=== PATIENT | female | born 1955 | race Caucasian/White ===

== ENCOUNTER 2019-09-19 11:55 | Inpatient (IN) ==
[2019-09-19] MEDS ORDERED: ALBUTEROL 2.5 MG/3 ML NEB RESP TX ONE (12:11)
[2019-09-19] MEDS ORDERED: methylPREDNISolone SOD SUC 125 MG/2 ML VIAL IV STA (12:14)
[2019-09-19] MEDS ORDERED: FUROSEMIDE 40 MG/4 ML VIAL IV STA (12:37)
[2019-09-19] MEDS ORDERED: cefTRIAXone 1,000 MG in SODIUM CHLORIDE 0.9% 100 ML IV STA (12:37)
[2019-09-19] MEDS ORDERED: LEVOFLOXACIN INJ 500 MG in PREMIX 1 EACH IV STA (12:37)
[2019-09-19 12:53] LABS: Ferritin 5.2 ng/ml (8-252)
[2019-09-19 12:54] LABS: Albumin 3.2 G/DL (3.4-5.0); Bilirubin,Total 0.6 MG/DL (0.2-1.0); Calcium 8.2 MG/DL (8.5-10.1); Osmolality,Calculated 280.5 MOS/KG (273-304); Total Protein 7.3 G/DL (6.4-8.3)
[2019-09-19 12:57] LABS: ABG HCO3 35.5 MMOL/L (20-26); ABG Oxygen Saturation 81.8 % (95-100); ABG PH 7.285 (7.35-7.45); ABG PO2 48.7 MM HG (80-95); ABG TCO2 39.2 MMOL/L (23-27)
[2019-09-19 13:00] LABS: ABG PCO2 86.8 MM HG (35-48)
[2019-09-19 13:04] LABS: Basophils % 0.3 % (0.0-0.8); Hematocrit 30.3 VOL% (35.7-47.0); Hemoglobin 7.5 GM/DL (12.0-16.0); Immature Granulocytes % 1.7 %; Immature Granulocytes Absolute 0.24 #; Lymphocytes # 0.7 10*3/uL (1.4-4.0); Lymphocytes % 5.1 % (21.3-54.2); Mean Corpuscular HGB Conc 24.8 GM/DL (32-36); Mean Corpuscular Volume 89.6 FL (87-102); Monocytes % 6.7 % (1.7-12.7); NRBC # 0.06 10*3/uL; Neutrophils % 86.2 % (38.7-73.9); Platelet Count 302 T/CUMM (130-400); Red Blood Count 3.38 MC/CUMM (3.8-5.5); Red Cell Distribution Width 18.5 % (9.3-17.3)
[2019-09-19 13:19] LABS: Hypochromasia 1+; Platelet Estimate Normal
[2019-09-19] MEDS ORDERED: MIDAZOLAM 10 MG/2 ML VIAL ONE (13:52)
[2019-09-19] MEDS ORDERED: MIDAZOLAM 2 MG/2 ML VIAL IV STA ×2 (13:53→14:10)
[2019-09-19] MEDS ORDERED: DILTIAZEM 50 MG/10 ML VIAL IV STA (14:03)
[2019-09-19] MEDS ORDERED: ONDANSETRON 4 MG/2 ML VIAL IV PRN (14:04)
[2019-09-19] MEDS ORDERED: DILTIAZEM 25 MG/5 ML VIAL IV ONE (14:06)
[2019-09-19] MEDS ORDERED: dilTIAZem Drip 125 MG/125 ML PREMIX IV SCH (14:30)
[2019-09-19 16:24] LABS: ABG Base Excess 12.5 MMOL/L (-2.5-2.5); ABG HCO3 36.3 MMOL/L (20-26); ABG Oxygen Saturation 99.8 % (95-100); ABG PCO2 51.5 MM HG (35-48); ABG PH 7.473 (7.35-7.45); ABG TCO2 35.5 MMOL/L (23-27)
[2019-09-19] MEDS: ASPIRIN EC 81 MG TABLET PO SCH (18:38)
[2019-09-19] MEDS: ENOXAPARIN 40 MG/0.4 ML SYRINGE SUBCUT SCH (20:33)
[2019-09-19] MEDS: methylPREDNISolone SOD SUC 40 MG/1 ML VIAL IV SCH (20:33)
[2019-09-20 03:44] LABS: PT Patient Result 10.3 SECS (9.8-11.9)
[2019-09-20 03:45] LABS: Bilirubin,Total 0.4 MG/DL (0.2-1.0); Calcium 8.2 MG/DL (8.5-10.1); Osmolality,Calculated 280.5 MOS/KG (273-304)
[2019-09-20 03:45] LABS: % Iron Saturation 3.4 % (18-50); Ferritin 6.1 ng/ml (8-252)
[2019-09-20 03:47] LABS: Basophils % 0.1 % (0.0-0.8); Hematocrit 28.2 VOL% (35.7-47.0); Hemoglobin 7.1 GM/DL (12.0-16.0); Immature Granulocytes Absolute 0.07 #; Lymphocytes # 0.6 10*3/uL (1.4-4.0); Lymphocytes % 7.7 % (21.3-54.2); Mean Corpuscular HGB Conc 25.2 GM/DL (32-36); Mean Corpuscular Volume 87.3 FL (87-102); Mean Platelet Volume 10.3 FL (9.6-12.0); Monocytes % 1.4 % (1.7-12.7); NRBC # 0.05 10*3/uL; Neutrophils % 89.8 % (38.7-73.9); Platelet Count 260 T/CUMM (130-400); Red Blood Count 3.23 MC/CUMM (3.8-5.5); Red Cell Distribution Width 18.3 % (9.3-17.3); White Blood Count 7.1 T/CUMM (4-12)
[2019-09-20 04:11] LABS: ABG Base Excess 15.6 MMOL/L (-2.5-2.5); ABG HCO3 43.2 MMOL/L (20-26); ABG PH 7.352 (7.35-7.45); ABG PO2 52.3 MM HG (80-95); ABG TCO2 45.6 MMOL/L (23-27); Allen Test Positive
[2019-09-20 04:13] LABS: ABG PCO2 79.6 MM HG (35-48)
[2019-09-20] MEDS: methylPREDNISolone SOD SUC 40 MG/1 ML VIAL IV SCH ×3 (04:30→21:30)
[2019-09-20 04:36] LABS: Hypochromasia 2+; Microcytosis Slight; Platelet Estimate Adequate
[2019-09-20] MEDS: ALBUTEROL/IPRATROPIUM 3 ML NEB RESP TX PRN ×2 (08:58→15:13)
[2019-09-20] MEDS ORDERED: FUROSEMIDE 40 MG/4 ML VIAL IV ONE (08:59)
[2019-09-20] MEDS: ARIPiprazole 10 MG TABLET PO SCH (09:00)
[2019-09-20] MEDS ORDERED: PANTOPRAZOLE 40 MG TABLET PO SCH (09:00)
[2019-09-20] MEDS ORDERED: DILTIAZEM CD 240 MG CAPSULE PO SCH (09:00)
[2019-09-20] MEDS: ASPIRIN EC 81 MG TABLET PO SCH (09:00)
[2019-09-20] MEDS: SERTRALINE 100 MG TABLET PO SCH (09:01)
[2019-09-20] MEDS: PANTOPRAZOLE 40 MG TABLET PO SCH (09:03)
[2019-09-20] MEDS: LEVOFLOXACIN INJ 750 MG in PREMIX 1 EACH IV SCH (12:27)
[2019-09-20 13:24] LABS: Apearance,Urine CLEAR (Clear); Bacteria,Urine Occasional /HPF (Few); Bilirubin,Urine Negative (Negative); Blood, Urine Small mg/dL (Negative); Glucose,Urine (UA) Negative (Negative); Hyaline Casts,Urine 7 /LPF (0-3); Ketones,Urine Negative (Negative); Mucus,Urine Occasional /LPF (Occasional); Nitrite,Urine Negative (Negative); Protein,Urine Negative; RBC,Urine 30 /HPF (0-4); Squamous Epithelial Cell,Urine Occasional /HPF (0-10); Urine Color Yellow (Yellow); Urine Specific Gravity 1.013 (1.001-1.035); Urine Urobilinogen < 2.0 EU/DL (0.2-1.0); WBC,Urine 3 /HPF (0-6)
[2019-09-20] MEDS ORDERED: DILTIAZEM 60 MG TABLET PO ONE (13:34)
[2019-09-20] MEDS: ENOXAPARIN 40 MG/0.4 ML SYRINGE SUBCUT SCH (21:29)
[2019-09-21] MEDS: methylPREDNISolone SOD SUC 40 MG/1 ML VIAL IV SCH ×2 (04:30→13:55)
[2019-09-21 06:24] LABS: Basophils % 0.2 % (0.0-0.8); Immature Granulocytes Absolute 0.12 #; Lymphocytes # 0.5 10*3/uL (1.4-4.0); Lymphocytes % 4.5 % (21.3-54.2); Mean Corpuscular HGB Conc 24.9 GM/DL (32-36); Mean Corpuscular Volume 88.2 FL (87-102); Mean Platelet Volume 10.8 FL (9.6-12.0); Monocytes % 2.6 % (1.7-12.7); NRBC # 0.08 10*3/uL; Neutrophils % 91.7 % (38.7-73.9); Platelet Count 303 T/CUMM (130-400); Red Blood Count 3.73 MC/CUMM (3.8-5.5); Red Cell Distribution Width 18.4 % (9.3-17.3); White Blood Count 11.5 T/CUMM (4-12)
[2019-09-21 06:35] LABS: Calcium 8.7 MG/DL (8.5-10.1); Osmolality,Calculated 283.5 MOS/KG (273-304)
[2019-09-21 06:52] LABS: Hematocrit 32.3 VOL% (35.7-47.0); Hemoglobin 8.2 GM/DL (12.0-16.0)
[2019-09-21 06:59] LABS: Hypochromasia 2+; Lymphocytes 3 % (20-55); Microcytosis Slight; Nucleated Red Blood Cells 2 (0-5); Platelet Estimate Adequate; Segmented Neutrophils 93 % (50-85); Total Cells Counted 100
[2019-09-21] MEDS ORDERED: DILTIAZEM CD 300 MG CAPSULE PO SCH (09:00)
[2019-09-21] MEDS ORDERED: APIXABAN 5 MG TABLET PO SCH (09:00)
[2019-09-21] MEDS: ARIPiprazole 10 MG TABLET PO SCH (09:06)
[2019-09-21] MEDS: ASPIRIN EC 81 MG TABLET PO SCH (09:06)
[2019-09-21] MEDS: SERTRALINE 100 MG TABLET PO SCH (09:06)
[2019-09-21] MEDS: PANTOPRAZOLE 40 MG TABLET PO SCH (09:07)
[2019-09-21] MEDS ORDERED: ALUMINUM/MAGNES/SIMETH MAX STR 30 ML UDCUP PO PRN (10:57)
[2019-09-21 12:01] VITALS: BP 135/62
[2019-09-21] MEDS: LEVOFLOXACIN INJ 750 MG in PREMIX 1 EACH IV SCH (13:55)
== END 2019-09-21 15:03 | disposition home or self-care (01) | DRG 189 ==
LOC: EDBD → EDUNIT# → N.ED 11:55 → SUATTDRO 14:04 → N.EDINP 14:04 → N.ICU 15:39 → N.TELEN 09-20 16:08
PROVIDERS: ADMIT Family Medicine; ATTEND Internal Medicine

== ENCOUNTER 2020-01-23 17:02 | Observation (INO) ==
[2020-01-23 18:02] LABS: Basophils % 0.1 % (0.0-0.8); Hematocrit 36.4 VOL% (35.7-47.0); Hemoglobin 10.6 GM/DL (12.0-16.0); Immature Granulocytes % 0.6 %; Immature Granulocytes Absolute 0.07 #; Lymphocytes # 0.9 10*3/uL (1.4-4.0); Lymphocytes % 8.2 % (21.3-54.2); Mean Corpuscular HGB Conc 29.1 GM/DL (32-36); Mean Corpuscular Volume 93.3 FL (87-102); Mean Platelet Volume 10.1 FL (9.6-12.0); Monocytes % 5.2 % (1.7-12.7); Neutrophils % 85.9 % (38.7-73.9); Platelet Count 303 T/CUMM (130-400); Red Cell Distribution Width 15.3 % (9.3-17.3); White Blood Count 11.5 T/CUMM (4-12)
[2020-01-23] MEDS ORDERED: methylPREDNISolone SOD SUC 125 MG/2 ML VIAL IV STA (18:43)
[2020-01-23] MEDS ORDERED: FUROSEMIDE 40 MG/4 ML VIAL IV STA (18:43)
[2020-01-23] MEDS ORDERED: ONDANSETRON 4 MG/2 ML VIAL IV STA (18:43)
[2020-01-23] MEDS ORDERED: cefTRIAXone 1,000 MG in SODIUM CHLORIDE 0.9% 100 ML IV STA (18:43)
[2020-01-23] MEDS ORDERED: ALBUTEROL/IPRATROPIUM 3 ML NEB RESP TX STA (18:43)
[2020-01-23] MEDS ORDERED: MORPHINE 4 MG/1 ML VIAL IV STA (18:43)
[2020-01-23 19:08] LABS: Alanine Aminotransferase 24 U/L (13-56); Albumin 3.3 G/DL (3.4-5.0); Alkaline Phosphatase 144 U/L (45-117); Aspartate Amino Transferase 10 U/L (0-37); Bilirubin,Total < 0.39 MG/DL (0.2-1.0); Blood Urea Nitrogen 19 MG/DL (7-18); Calcium 9.2 MG/DL (8.5-10.1); Estimated Glom Filtration Rate 72 ML/MIN; Glucose 156 MG/DL (74-106); Osmolality,Calculated 285.3 MOS/KG (273-304); Total Protein 7.1 G/DL (6.4-8.3)
[2020-01-23] MEDS ORDERED: ONDANSETRON 4 MG/2 ML VIAL IV PRN (19:56)
[2020-01-23] MEDS ORDERED: MAGNESIUM SULF RIDER 4 GM in PREMIX 1 EACH IV PRN (19:56)
[2020-01-23] MEDS ORDERED: DEXTROSE 50% 25 GM/50 ML VIAL IV PRN (19:56)
[2020-01-23] MEDS ORDERED: MAGNESIUM SULF RIDER 2 GM in PREMIX 1 EACH IV PRN (19:56)
[2020-01-23] MEDS ORDERED: GLUCAGON 1 MG VIAL IM PRN (19:56)
[2020-01-23] MEDS ORDERED: MORPHINE 4 MG/1 ML VIAL IV PRN (19:56)
[2020-01-23] MEDS ORDERED: LEVALBUTEROL 1.25 MG/3 ML NEB RESP TX PRN (20:05)
[2020-01-24] MEDS ORDERED: PNEUMOCOCCAL VACCINE (13 VALENT) 0.5 ML SYRINGE IM ONE (00:27)
[2020-01-24] MEDS ORDERED: INFLUENZA VIRUS VACCINE 0.5 ML SYRINGE IM ONE (00:31)
[2020-01-24] MEDS: LEVALBUTEROL 1.25 MG/3 ML NEB RESP TX SCH ×4 (00:31→19:23)
[2020-01-24] MEDS: INSULIN REGULAR 100 UNIT/ML SUBCUT SCH ×5 (01:37→22:00)
[2020-01-24] MEDS: methylPREDNISolone SOD SUC 40 MG/1 ML VIAL IV SCH ×3 (07:14→22:03)
[2020-01-24 07:22] LABS: Alanine Aminotransferase 22 U/L (13-56); Alkaline Phosphatase 130 U/L (45-117); Aspartate Amino Transferase 12 U/L (0-37); Bilirubin,Total < 0.39 MG/DL (0.2-1.0); Blood Urea Nitrogen 23 MG/DL (7-18); Calcium 9.2 MG/DL (8.5-10.1); Estimated Glom Filtration Rate 81 ML/MIN; Glucose 152 MG/DL (74-106); Osmolality,Calculated 289.1 MOS/KG (273-304); Total Protein 7.4 G/DL (6.4-8.3)
[2020-01-24 07:51] LABS: Hematocrit 35.7 VOL% (35.7-47.0); Immature Granulocytes % 0.6 %; Immature Granulocytes Absolute 0.06 #; Lymphocytes # 0.5 10*3/uL (1.4-4.0); Lymphocytes % 5.7 % (21.3-54.2); Mean Corpuscular HGB Conc 29.4 GM/DL (32-36); Mean Corpuscular Volume 93.5 FL (87-102); Mean Platelet Volume 10.2 FL (9.6-12.0); Monocytes % 1.3 % (1.7-12.7); Neutrophils % 92.4 % (38.7-73.9); Platelet Count 298 T/CUMM (130-400); Red Blood Count 3.82 MC/CUMM (3.8-5.5); Red Cell Distribution Width 15.5 % (9.3-17.3); White Blood Count 9.3 T/CUMM (4-12)
[2020-01-24 07:53] LABS: Hemoglobin 10.5 GM/DL (12.0-16.0)
[2020-01-24 07:56] LABS: Hypochromasia 1+; Lymphocytes 8 % (20-55); Microcytosis 1+; Platelet Estimate Adequate; Segmented Neutrophils 90 % (50-85); Total Cells Counted 100
[2020-01-24] MEDS: FUROSEMIDE 40 MG/4 ML VIAL IV SCH (08:25)
[2020-01-24] MEDS: PANTOPRAZOLE 40 MG TABLET PO SCH (08:25)
[2020-01-24] MEDS ORDERED: cefTRIAXone 1,000 MG in SYRINGE 1 EACH IV SCH (18:00)
[2020-01-24] MEDS: SERTRALINE 100 MG TABLET PO SCH (22:02)
[2020-01-24] MEDS: APIXABAN 5 MG TABLET PO SCH (22:02)
[2020-01-25] MEDS: LEVALBUTEROL 1.25 MG/3 ML NEB RESP TX SCH ×3 (01:10→07:04)
[2020-01-25] MEDS ORDERED: DILTIAZEM CD 300 MG CAPSULE PO SCH (09:00)
[2020-01-25] MEDS ORDERED: ARIPiprazole 10 MG TABLET PO SCH (09:00)
[2020-01-25] MEDS ORDERED: MULTIVITAMIN (CENTRUM) TABLET PO SCH (09:00)
[2020-01-25 09:01] LABS: Alanine Aminotransferase 22 U/L (13-56); Albumin 3.2 G/DL (3.4-5.0); Alkaline Phosphatase 125 U/L (45-117); Aspartate Amino Transferase 8 U/L (0-37); Bilirubin,Total < 0.39 MG/DL (0.2-1.0); Blood Urea Nitrogen 20 MG/DL (7-18); Estimated Glom Filtration Rate 94 ML/MIN; Glucose 150 MG/DL (74-106); Osmolality,Calculated 282.5 MOS/KG (273-304); Total Protein 7.8 G/DL (6.4-8.3)
[2020-01-25 09:11] LABS: Basophils % 0.1 % (0.0-0.8); Eosinophils % 0.1 % (0.00-10.9); Immature Granulocytes % 0.7 %; Immature Granulocytes Absolute 0.07 #; Lymphocytes # 0.6 10*3/uL (1.4-4.0); Lymphocytes % 5.7 % (21.3-54.2); Mean Corpuscular HGB Conc 29.2 GM/DL (32-36); Mean Corpuscular Volume 93.8 FL (87-102); Mean Platelet Volume 9.9 FL (9.6-12.0); Monocytes % 5.1 % (1.7-12.7); Neutrophils % 88.3 % (38.7-73.9); Platelet Count 330 T/CUMM (130-400); Red Blood Count 4.05 MC/CUMM (3.8-5.5); Red Cell Distribution Width 15.6 % (9.3-17.3); White Blood Count 10.6 T/CUMM (4-12)
[2020-01-25 09:15] LABS: Hemoglobin 11.1 GM/DL (12.0-16.0)
[2020-01-25] MEDS ORDERED: INFLUENZA VIRUS VACCINE 0.5 ML SYRINGE IM ONE (09:28)
[2020-01-25] MEDS: methylPREDNISolone SOD SUC 40 MG/1 ML VIAL IV SCH (09:43)
[2020-01-25] MEDS: INSULIN REGULAR 100 UNIT/ML SUBCUT SCH ×2 (09:43→12:44)
[2020-01-25] MEDS: FUROSEMIDE 40 MG/4 ML VIAL IV SCH (09:43)
[2020-01-25] MEDS: PANTOPRAZOLE 40 MG TABLET PO SCH (09:43)
[2020-01-25] MEDS: APIXABAN 5 MG TABLET PO SCH (09:44)
[2020-01-25] MEDS: SERTRALINE 100 MG TABLET PO SCH (09:44)
[2020-01-25 12:10] VITALS: BP 141/88
== END 2020-01-25 12:35 | disposition home or self-care (01) ==
LOC: N.ED 17:02 → N.EDINP 17:02 → N.TELEN 20:29
PROVIDERS: ADMIT Family Medicine; ATTEND Family Medicine

== ENCOUNTER 2020-03-26 16:25 | Observation (INO) ==
[2020-03-26 20:32] LABS: Basophils % 0.2 % (0.0-0.8); Eosinophils % 0.8 % (0.00-10.9); Hematocrit 32.5 VOL% (35.7-47.0); Hemoglobin 9.4 GM/DL (12.0-16.0); Immature Granulocytes % 0.3 %; Lymphocytes # 1.8 10*3/uL (1.4-4.0); Lymphocytes % 20.1 % (21.3-54.2); Mean Corpuscular HGB Conc 28.9 GM/DL (32-36); Mean Corpuscular Volume 91.5 FL (87-102); Mean Platelet Volume 9.8 FL (9.6-12.0); Monocytes % 11.2 % (1.7-12.7); Neutrophils % 67.4 % (38.7-73.9); Platelet Count 289 T/CUMM (130-400); Red Blood Count 3.55 MC/CUMM (3.8-5.5); Red Cell Distribution Width 15.5 % (9.3-17.3); White Blood Count 9.1 T/CUMM (4-12)
[2020-03-26 20:33] LABS: Eosinophils # 0.1 10*3/uL (0.0-0.87); Immature Granulocytes Absolute 0.03 #
[2020-03-26 20:42] LABS: PT Patient Result 10.3 SECS (9.8-11.9)
[2020-03-26 20:50] LABS: Anisocytosis 1+; Elliptocytes Few; Hypochromia 1+
[2020-03-26 20:51] LABS: Platelet Estimate Adequate; Polychromasia 1+
[2020-03-26 21:02] LABS: Alanine Aminotransferase 16 U/L (13-56); Albumin 3.2 G/DL (3.4-5.0); Alkaline Phosphatase 107 U/L (45-117); Aspartate Amino Transferase 11 U/L (0-37); Bilirubin,Total < 0.39 MG/DL (0.2-1.0); Blood Urea Nitrogen 16 MG/DL (7-18); Carbon Dioxide 36 MMOL/L (21-32); Chloride 101 MMOL/L (98-107); Estimated Glom Filtration Rate 95 ML/MIN; Ferritin 18.6 ng/ml (8-252); Glucose 115 MG/DL (74-106); Osmolality,Calculated 280.4 MOS/KG (273-304); Potassium 4.1 MMOL/L (3.5-5.1); Sodium 140 MMOL/L (136-145); Total Protein 7.6 G/DL (6.4-8.3)
[2020-03-26] MEDS ORDERED: methylPREDNISolone SOD SUC 125 MG/2 ML VIAL IV STA (21:12)
[2020-03-26 21:48] LABS: Bilirubin,Urine Negative (Negative); Blood, Urine Negative (Negative); Glucose,Urine (UA) Negative (Negative); Ketones,Urine Negative (Negative); Mucus,Urine Occasional /LPF (Occasional); Nitrite,Urine Negative (Negative); Protein,Urine Negative; RBC,Urine 1 /HPF (0-4); Squamous Epithelial Cell,Urine Occasional /HPF (0-10); Urine Appearance CLEAR (Clear); Urine Color Yellow (Yellow); Urine Specific Gravity 1.021 (1.001-1.035); WBC,Urine <1 /HPF (0-6)
[2020-03-26] MEDS ORDERED: ALBUTEROL/IPRATROPIUM 3 ML NEB RESP TX STA (21:53)
[2020-03-26 22:16] LABS: ABG Base Excess 9.8 MMOL/L (-2.5-2.5); ABG HCO3 33.5 MMOL/L (20-26); ABG Oxygen Saturation 94.6 % (95-100); ABG PCO2 68.4 MM HG (35-48); ABG PH 7.349 (7.35-7.45); ABG PO2 77.9 MM HG (80-95); ABG TCO2 34.9 MMOL/L (23-27); Allen Test Positive
[2020-03-26] MEDS ORDERED: NICOTINE 21 MG/24 HR PATCH TRANSDERM PRN (22:23)
[2020-03-26] MEDS ORDERED: diphenhydrAMINE CAP 25 MG CAPSULE PO PRN (22:23)
[2020-03-26] MEDS ORDERED: guaiFENesin/DM ER 600-30 MG TABLET PO PRN (22:23)
[2020-03-26] MEDS ORDERED: ZALEPLON 5 MG CAPSULE PO PRN (22:23)
[2020-03-26] MEDS ORDERED: ONDANSETRON 4 MG/2 ML VIAL IV PRN (22:23)
[2020-03-26] MEDS ORDERED: ALBUTEROL 2.5 MG/3 ML NEB RESP TX PRN (22:23)
[2020-03-26] MEDS ORDERED: GLUCAGON 1 MG VIAL IM PRN (22:23)
[2020-03-26] MEDS ORDERED: BISACODYL 5 MG TABLET PO PRN (22:23)
[2020-03-26] MEDS ORDERED: hydrALAZINE 20 MG/1 ML VIAL IV PRN (22:23)
[2020-03-26] MEDS ORDERED: ALUMINUM/MAGNES/SIMETH MAX STR 30 ML UDCUP PO PRN (22:23)
[2020-03-26] MEDS ORDERED: SIMETHICONE CHEW 125 MG TABLET PO PRN (22:23)
[2020-03-26] MEDS ORDERED: DEXTROSE 50% 25 GM/50 ML VIAL IV PRN (22:23)
[2020-03-26] MEDS ORDERED: AZITHROMYCIN INJ 500 MG in SODIUM CHLORIDE 0.9% 250 ML IV SCH (22:30)
[2020-03-26] MEDS: ALBUTEROL/IPRATROPIUM 3 ML NEB RESP TX SCH (22:55)
[2020-03-27] MEDS: APIXABAN 5 MG TABLET PO SCH ×3 (01:53→20:28)
[2020-03-27] MEDS: ALBUTEROL/IPRATROPIUM 3 ML NEB RESP TX SCH ×6 (03:02→23:17)
[2020-03-27] MEDS: methylPREDNISolone SOD SUC 125 MG/2 ML VIAL IV SCH ×4 (04:44→22:34)
[2020-03-27 05:36] LABS: Basophils % 0.2 % (0.0-0.8); Immature Granulocytes % 0.3 %; Immature Granulocytes Absolute 0.02 #; Lymphocytes # 0.6 10*3/uL (1.4-4.0); Mean Corpuscular Volume 91.4 FL (87-102); Mean Platelet Volume 10.2 FL (9.6-12.0); Monocytes % 0.6 % (1.7-12.7); Neutrophils % 89.9 % (38.7-73.9); Platelet Count 271 T/CUMM (130-400); Red Blood Count 3.39 MC/CUMM (3.8-5.5); Red Cell Distribution Width 15.5 % (9.3-17.3); White Blood Count 6.5 T/CUMM (4-12)
[2020-03-27 06:09] LABS: Calcium 8.8 MG/DL (8.5-10.1); Osmolality,Calculated 283.4 MOS/KG (273-304)
[2020-03-27] MEDS ORDERED: ENOXAPARIN 40 MG/0.4 ML SYRINGE SUBCUT SCH (09:00)
[2020-03-27] MEDS: SERTRALINE 100 MG TABLET PO SCH ×2 (09:11→20:29)
[2020-03-27] MEDS: AZITHROMYCIN 250 MG TABLET PO SCH (09:11)
[2020-03-27] MEDS: SILDENAFIL 20 MG TABLET PO SCH ×3 (09:11→20:29)
[2020-03-27] MEDS: FERROUS SULFATE 325 MG TABLET PO SCH ×2 (09:11→20:29)
[2020-03-27] MEDS: PANTOPRAZOLE 40 MG TABLET PO SCH (09:11)
[2020-03-27] MEDS: Umeclidinium-Vilanterol [Anoro Ellipta] 62.5-25 mcg/actuation Bl INH SCH (09:12)
[2020-03-27] MEDS: ARIPiprazole 10 MG TABLET PO SCH (09:12)
[2020-03-27] MEDS: ACETAMINOPHEN 325 MG TABLET PO PRN ×2 (09:41→16:41)
[2020-03-27] MEDS: DILTIAZEM 90 MG TABLET PO SCH ×2 (12:25→20:28)
[2020-03-27] MEDS ORDERED: DOCUSATE/SENNA 50-8.6 MG TABLET PO SCH (21:00)
[2020-03-28] MEDS: ALBUTEROL/IPRATROPIUM 3 ML NEB RESP TX SCH ×4 (03:30→14:34)
[2020-03-28] MEDS: methylPREDNISolone SOD SUC 125 MG/2 ML VIAL IV SCH ×2 (04:43→12:52)
[2020-03-28 06:31] LABS: Immature Granulocytes % 0.4 %; Immature Granulocytes Absolute 0.03 #; Lymphocytes # 0.5 10*3/uL (1.4-4.0); Lymphocytes % 6.7 % (21.3-54.2); Mean Corpuscular HGB Conc 28.4 GM/DL (32-36); Mean Corpuscular Volume 92.8 FL (87-102); Mean Platelet Volume 10.5 FL (9.6-12.0); Monocytes # 0.2 10*3/uL (0.11-0.8); Neutrophils % 89.9 % (38.7-73.9); Platelet Count 261 T/CUMM (130-400); Red Blood Count 3.34 MC/CUMM (3.8-5.5); Red Cell Distribution Width 15.8 % (9.3-17.3); White Blood Count 6.7 T/CUMM (4-12)
[2020-03-28 06:33] LABS: Hemoglobin 8.8 GM/DL (12.0-16.0)
[2020-03-28 06:45] LABS: Hypochromia 4+; Platelet Estimate Normal; Stomatocytes Few
[2020-03-28 06:50] LABS: Calcium 8.9 MG/DL (8.5-10.1); Osmolality,Calculated 284.3 MOS/KG (273-304); Potassium 3.7 MMOL/L (3.5-5.1)
[2020-03-28] MEDS: FERROUS SULFATE 325 MG TABLET PO SCH (10:06)
[2020-03-28] MEDS: SERTRALINE 100 MG TABLET PO SCH (10:06)
[2020-03-28] MEDS: ARIPiprazole 10 MG TABLET PO SCH (10:06)
[2020-03-28] MEDS: PANTOPRAZOLE 40 MG TABLET PO SCH (10:06)
[2020-03-28] MEDS: AZITHROMYCIN 250 MG TABLET PO SCH (10:06)
[2020-03-28] MEDS: SILDENAFIL 20 MG TABLET PO SCH (10:07)
[2020-03-28] MEDS: DILTIAZEM 90 MG TABLET PO SCH (10:07)
[2020-03-28] MEDS: Umeclidinium-Vilanterol [Anoro Ellipta] 62.5-25 mcg/actuation Bl INH SCH (10:09)
[2020-03-28] MEDS: APIXABAN 5 MG TABLET PO SCH (10:10)
[2020-03-28 12:38] VITALS: BP 139/62
== END 2020-03-28 14:57 | disposition home or self-care (01) ==
LOC: N.EDINP 16:25 → N.ED 16:25 → N.TELES 03-27 00:45
PROVIDERS: ADMIT Internal Medicine; ATTEND Internal Medicine

== ENCOUNTER 2020-07-28 09:39 | Inpatient (IN) ==
[2020-07-28] MEDS ORDERED: ALBUTEROL 2.5 MG/3 ML NEB RESP TX STA (10:07)
[2020-07-28] MEDS ORDERED: MAGNESIUM SULF RIDER 2 GM/50 ML PREMIX IV STA (10:07)
[2020-07-28] MEDS ORDERED: methylPREDNISolone SOD SUC 125 MG/2 ML VIAL IV STA (10:07)
[2020-07-28 10:18] LABS: INR 0.9; PT Patient Result 10.4 SECS (9.8-11.9); Partial Thromboplastin Time 21.1 SECS (23.9-33.8)
[2020-07-28 10:26] LABS: Albumin 3.5 G/DL (3.4-5.0); Bilirubin,Total 0.4 MG/DL (0.2-1.0); Calcium 8.6 MG/DL (8.5-10.1); Osmolality,Calculated 278.5 MOS/KG (273-304); Potassium 4.5 MMOL/L (3.5-5.1); Total Protein 6.8 G/DL (6.4-8.2)
[2020-07-28 10:35] LABS: Basophils % 0.3 % (0.0-0.8); Eosinophils % 0.4 % (0.00-10.9); Immature Granulocytes % 0.6 %; Immature Granulocytes Absolute 0.05 #; Lymphocytes % 12.5 % (21.3-54.2); Mean Corpuscular HGB Conc 26.2 GM/DL (32-36); Mean Corpuscular Volume 91.5 FL (87-102); Mean Platelet Volume 10.6 FL (9.6-12.0); NRBC # 0.03 10*3/uL; Neutrophils % 76.2 % (38.7-73.9); Platelet Count 278 T/CUMM (130-400); Red Blood Count 3.17 MC/CUMM (3.8-5.5); Red Cell Distribution Width 22.2 % (9.3-17.3)
[2020-07-28 10:36] LABS: Hemoglobin 7.6 GM/DL (12.0-16.0)
[2020-07-28 10:52] LABS: Hypochromasia 1+; Microcytosis 1+; Platelet Estimate Adequate
[2020-07-28] MEDS ORDERED: GLUCAGON 1 MG VIAL IM PRN (13:14)
[2020-07-28] MEDS ORDERED: ONDANSETRON 4 MG/2 ML VIAL IV PRN (13:14)
[2020-07-28] MEDS ORDERED: ACETAMINOPHEN 325 MG TABLET PO PRN (13:14)
[2020-07-28] MEDS ORDERED: DEXTROSE 50% 25 GM/50 ML VIAL IV PRN (13:14)
[2020-07-28] MEDS ORDERED: guaiFENesin/DM ER 600-30 MG TABLET PO PRN (13:14)
[2020-07-28] MEDS ORDERED: DOCUSATE SODIUM 100 MG CAPSULE PO PRN (13:14)
[2020-07-28] MEDS ORDERED: FUROSEMIDE 40 MG/4 ML VIAL IV ONE (14:04)
[2020-07-28 14:24] LABS: Folate > 24.00 NG/ML (5.38-24.0); Vitamin B12 517 PG/ML (211-911)
[2020-07-28] MEDS ORDERED: AZITHROMYCIN INJ 500 MG in SODIUM CHLORIDE 0.9% 250 ML IV SCH (15:00)
[2020-07-28] MEDS ORDERED: SODIUM CHLORIDE 0.9% 1,000 ML IV PRN (17:01)
[2020-07-28] MEDS: SILDENAFIL 20 MG TABLET PO SCH ×2 (17:14→21:25)
[2020-07-28] MEDS: methylPREDNISolone SOD SUC 40 MG/1 ML VIAL IV SCH ×2 (17:14→23:34)
[2020-07-28] MEDS: ALBUTEROL/IPRATROPIUM 3 ML NEB RESP TX SCH (19:38)
[2020-07-28] MEDS ORDERED: APIXABAN 5 MG TABLET PO SCH (21:00)
[2020-07-28] MEDS: cefTRIAXone 1,000 MG in SODIUM CHLORIDE 0.9% 100 ML IV SCH (21:21)
[2020-07-28] MEDS: METOPROLOL TARTRATE 50 MG TABLET PO SCH (21:25)
[2020-07-28 23:02] LABS: Hematocrit 27.9 VOL% (35.7-47.0); Hemoglobin 7.4 GM/DL (12.0-16.0)
[2020-07-29] MEDS: ALBUTEROL/IPRATROPIUM 3 ML NEB RESP TX SCH ×4 (00:18→20:08)
[2020-07-29 06:03] LABS: Risk Ratio 3.04; VLDL CHOLESTEROL 14.2 MG/DL
[2020-07-29 06:04] LABS: Hematocrit 29.1 VOL% (35.7-47.0); Hemoglobin 7.5 GM/DL (12.0-16.0); Immature Granulocytes % 0.9 %; Immature Granulocytes Absolute 0.05 #; Lymphocytes # 0.5 10*3/uL (1.4-4.0); Lymphocytes % 9.8 % (21.3-54.2); Mean Corpuscular HGB Conc 25.8 GM/DL (32-36); Mean Platelet Volume 10.6 FL (9.6-12.0); Monocytes % 1.7 % (1.7-12.7); NRBC # 0.03 10*3/uL; Neutrophils % 87.6 % (38.7-73.9); Platelet Count 245 T/CUMM (130-400); Red Blood Count 3.13 MC/CUMM (3.8-5.5); Red Cell Distribution Width 22.1 % (9.3-17.3); White Blood Count 5.4 T/CUMM (4-12)
[2020-07-29 06:14] LABS: Hypochromasia 2+; Microcytosis 1+; Ovalocytes Slight; Platelet Estimate Adequate
[2020-07-29 07:36] LABS: Calcium 8.9 MG/DL (8.5-10.1); Osmolality,Calculated 279.7 MOS/KG (273-304); Potassium 4.1 MMOL/L (3.5-5.1)
[2020-07-29] MEDS: FUROSEMIDE 40 MG TABLET PO SCH (08:40)
[2020-07-29] MEDS: SERTRALINE 100 MG TABLET PO SCH (08:40)
[2020-07-29] MEDS: METOPROLOL TARTRATE 50 MG TABLET PO SCH ×2 (08:40→20:01)
[2020-07-29] MEDS: SILDENAFIL 20 MG TABLET PO SCH ×3 (08:40→20:01)
[2020-07-29] MEDS: MULTIVITAMIN (CENTRUM) TABLET PO SCH (08:40)
[2020-07-29] MEDS: ARIPiprazole 10 MG TABLET PO SCH (08:40)
[2020-07-29] MEDS: methylPREDNISolone SOD SUC 40 MG/1 ML VIAL IV SCH ×3 (08:41→23:59)
[2020-07-29] MEDS ORDERED: PANTOPRAZOLE 40 MG TABLET PO SCH (09:00)
[2020-07-29] MEDS ORDERED: NF- (Umeclidinium-Vilanterol [Anoro Ellipta] 62.5-25 mcg/actuation Bl INH SCH (09:00)
[2020-07-29] MEDS: AZITHROMYCIN 250 MG TABLET PO SCH (12:05)
[2020-07-29] MEDS: cefTRIAXone 1,000 MG in SODIUM CHLORIDE 0.9% 100 ML IV SCH (20:01)
[2020-07-29] MEDS: PANTOPRAZOLE 40 MG VIAL IV SCH (21:08)
[2020-07-29 22:25] LABS: Hematocrit 32.6 VOL% (35.7-47.0)
[2020-07-30] MEDS: ALBUTEROL/IPRATROPIUM 3 ML NEB RESP TX SCH ×4 (01:00→19:04)
[2020-07-30 06:07] LABS: Calcium 8.8 MG/DL (8.5-10.1); Potassium 4.3 MMOL/L (3.5-5.1)
[2020-07-30 06:50] LABS: Basophils % 0.1 % (0.0-0.8); Hematocrit 34.3 VOL% (35.7-47.0); Immature Granulocytes % 0.5 %; Immature Granulocytes Absolute 0.04 #; Lymphocytes # 0.5 10*3/uL (1.4-4.0); Mean Corpuscular HGB Conc 27.4 GM/DL (32-36); Mean Corpuscular Volume 91.7 FL (87-102); Mean Platelet Volume 10.8 FL (9.6-12.0); Monocytes % 3.5 % (1.7-12.7); NRBC # 0.02 10*3/uL; Neutrophils % 89.9 % (38.7-73.9); Platelet Count 241 T/CUMM (130-400); Red Blood Count 3.74 MC/CUMM (3.8-5.5); Red Cell Distribution Width 20.9 % (9.3-17.3); White Blood Count 8.6 T/CUMM (4-12)
[2020-07-30 06:54] LABS: Hemoglobin 9.4 GM/DL (12.0-16.0)
[2020-07-30 06:57] LABS: Hypochromasia 1+; Microcytosis 1+; Ovalocytes Slight; Platelet Estimate Adequate
[2020-07-30] MEDS: PANTOPRAZOLE 40 MG VIAL IV SCH (12:10)
[2020-07-30] MEDS: methylPREDNISolone SOD SUC 40 MG/1 ML VIAL IV SCH ×2 (12:10→18:37)
[2020-07-30] MEDS ORDERED: LACTATED RINGERS 1,000 ML IV SCH (13:30)
[2020-07-30] MEDS ORDERED: LIDOCAINE 2% 5 ML VIAL ONE (14:03)
[2020-07-30] MEDS ORDERED: ETOMIDATE 20 MG/10 ML VIAL IV ONE (14:03)
[2020-07-30] MEDS: MULTIVITAMIN (CENTRUM) TABLET PO SCH (14:45)
[2020-07-30] MEDS: METOPROLOL TARTRATE 50 MG TABLET PO SCH ×2 (14:45→21:52)
[2020-07-30] MEDS: SILDENAFIL 20 MG TABLET PO SCH ×3 (14:45→21:53)
[2020-07-30] MEDS: AZITHROMYCIN 250 MG TABLET PO SCH (14:45)
[2020-07-30] MEDS: ARIPiprazole 10 MG TABLET PO SCH (14:45)
[2020-07-30] MEDS: ATORVASTATIN 40 MG TABLET PO SCH (14:45)
[2020-07-30] MEDS: FUROSEMIDE 40 MG TABLET PO SCH (14:45)
[2020-07-30] MEDS: SERTRALINE 100 MG TABLET PO SCH (14:46)
[2020-07-30] MEDS: PANTOPRAZOLE 40 MG TABLET PO SCH (18:36)
[2020-07-30] MEDS: cefTRIAXone 1,000 MG in SODIUM CHLORIDE 0.9% 100 ML IV SCH (21:53)
[2020-07-31] MEDS: ALBUTEROL/IPRATROPIUM 3 ML NEB RESP TX SCH ×4 (00:04→20:46)
[2020-07-31] MEDS: methylPREDNISolone SOD SUC 40 MG/1 ML VIAL IV SCH ×3 (01:36→21:43)
[2020-07-31] MEDS: PANTOPRAZOLE 40 MG TABLET PO SCH ×2 (05:59→17:10)
[2020-07-31] MEDS: AZITHROMYCIN 250 MG TABLET PO SCH (08:44)
[2020-07-31] MEDS: SERTRALINE 100 MG TABLET PO SCH (08:45)
[2020-07-31] MEDS: FUROSEMIDE 40 MG TABLET PO SCH (08:45)
[2020-07-31] MEDS: ARIPiprazole 10 MG TABLET PO SCH (08:47)
[2020-07-31] MEDS: ATORVASTATIN 40 MG TABLET PO SCH (08:47)
[2020-07-31] MEDS: SILDENAFIL 20 MG TABLET PO SCH ×3 (08:47→21:44)
[2020-07-31] MEDS: MULTIVITAMIN (CENTRUM) TABLET PO SCH (08:48)
[2020-07-31] MEDS: METOPROLOL TARTRATE 50 MG TABLET PO SCH ×2 (08:48→21:44)
[2020-07-31] MEDS: cefTRIAXone 1,000 MG in SODIUM CHLORIDE 0.9% 100 ML IV SCH (21:43)
[2020-08-01] MEDS: ALBUTEROL/IPRATROPIUM 3 ML NEB RESP TX SCH ×2 (01:55→07:11)
[2020-08-01 06:02] LABS: Calcium 8.9 MG/DL (8.5-10.1); Osmolality,Calculated 285.3 MOS/KG (273-304); Potassium 4.2 MMOL/L (3.5-5.1)
[2020-08-01 06:38] LABS: Hematocrit 37.1 VOL% (35.7-47.0); Hemoglobin 9.8 GM/DL (12.0-16.0); Immature Granulocytes % 0.5 %; Immature Granulocytes Absolute 0.04 #; Lymphocytes # 0.5 10*3/uL (1.4-4.0); Mean Corpuscular HGB Conc 26.4 GM/DL (32-36); Mean Corpuscular Volume 94.6 FL (87-102); Mean Platelet Volume 10.7 FL (9.6-12.0); Monocytes % 7.1 % (1.7-12.7); Neutrophils % 85.4 % (38.7-73.9); Platelet Count 226 T/CUMM (130-400); Red Blood Count 3.92 MC/CUMM (3.8-5.5); Red Cell Distribution Width 19.8 % (9.3-17.3); White Blood Count 7.7 T/CUMM (4-12)
[2020-08-01 07:09] LABS: Hypochromasia 2+
[2020-08-01 07:10] LABS: Microcytosis 1+; Ovalocytes Few; Polychromasia Slight
[2020-08-01 07:11] LABS: Platelet Estimate Normal
[2020-08-01] MEDS: SERTRALINE 100 MG TABLET PO SCH (09:07)
[2020-08-01] MEDS: ARIPiprazole 10 MG TABLET PO SCH (09:08)
[2020-08-01] MEDS: PANTOPRAZOLE 40 MG TABLET PO SCH (09:08)
[2020-08-01] MEDS: MULTIVITAMIN (CENTRUM) TABLET PO SCH (09:08)
[2020-08-01] MEDS: AZITHROMYCIN 250 MG TABLET PO SCH (09:08)
[2020-08-01] MEDS: METOPROLOL TARTRATE 50 MG TABLET PO SCH (09:08)
[2020-08-01] MEDS: methylPREDNISolone SOD SUC 40 MG/1 ML VIAL IV SCH (09:08)
[2020-08-01] MEDS: FUROSEMIDE 40 MG TABLET PO SCH (09:08)
[2020-08-01] MEDS: SILDENAFIL 20 MG TABLET PO SCH (09:08)
[2020-08-01] MEDS: ATORVASTATIN 40 MG TABLET PO SCH (09:08)
[2020-08-01] MEDS ORDERED: METOPROLOL TARTRATE 25 MG TABLET PO ONE (11:00)
[2020-08-01 11:18] VITALS: BP 168/69
[2020-08-01] MEDS ORDERED: METOPROLOL TARTRATE 25 MG TABLET PO SCH (21:00)
== END 2020-08-01 12:08 | disposition home or self-care (01) | DRG 190 ==
LOC: EDUNIT# → EDBD → N.ED 09:39 → N.EDINP 13:14 → N.5E 15:29
PROVIDERS: ADMIT Internal Medicine; ATTEND Internal Medicine

== ENCOUNTER 2021-09-17 00:20 | Inpatient (IN) ==
[2021-09-17] MEDS ORDERED: ALBUTEROL/IPRATROPIUM 3 ML NEB RESP TX STA (01:13)
[2021-09-17 01:19] LABS: Basophils % 0.2 % (0.0-0.8); Eosinophils % 0.2 % (0.00-10.9); Hemoglobin 12.2 GM/DL (12.0-16.0); Immature Granulocytes % 1.3 %; Immature Granulocytes Absolute 0.14 #; Lymphocytes # 1.7 10*3/uL (1.4-4.0); Mean Corpuscular HGB Conc 28.2 GM/DL (32-36); Mean Corpuscular Volume 100.9 FL (87-102); Mean Platelet Volume 10.2 FL (9.6-12.0); Monocytes # 0.7 10*3/uL (0.11-0.8); Monocytes % 6.2 % (1.7-12.7); Neutrophils % 77.1 % (38.7-73.9); Platelet Count 240 T/CUMM (130-400); Red Blood Count 4.28 MC/CUMM (3.8-5.5); Red Cell Distribution Width 15.7 % (9.3-17.3); White Blood Count 11.1 T/CUMM (4-12)
[2021-09-17] MEDS ORDERED: DILTIAZEM 25 MG/5 ML VIAL IV ONE (01:19)
[2021-09-17] MEDS ORDERED: DILTIAZEM 25 MG/5 ML VIAL IV STA (01:23)
[2021-09-17 01:26] LABS: INR 0.9; PT Patient Result 9.8 SECS (10.5-12.0)
[2021-09-17 01:29] LABS: Hematocrit 43.2 VOL% (35.7-47.0)
[2021-09-17 01:54] LABS: Albumin 3.8 G/DL (3.4-5.0); Bilirubin,Total 0.4 MG/DL (0.20-1.00); Calcium 9.8 MG/DL (8.5-10.1); Osmolality,Calculated 288.7 MOS/KG (273-304); Potassium 2.9 MMOL/L (3.5-5.1); Total Protein 7.2 G/DL (6.4-8.2)
[2021-09-17 01:57] LABS: ABG Base Excess 22.1 MMOL/L (-2.5-2.5); ABG Oxygen Saturation 98.6 % (95-100); ABG PH 7.338 (7.35-7.45); ABG TCO2 48.4 MMOL/L (23-27)
[2021-09-17 02:02] LABS: Platelet Estimate Adequate
[2021-09-17 02:03] LABS: Hypochromia 1+
[2021-09-17] MEDS ORDERED: POTASSIUM CHLORIDE 20 MEQ TABLET PO STA ×2 (02:20→05:10)
[2021-09-17] MEDS ORDERED: LABETALOL 20 MG/4 ML SYRINGE IV STA (02:36)
[2021-09-17] MEDS ORDERED: LABETALOL 20 MG/4 ML SYRINGE IV ONE (02:36)
[2021-09-17 03:39] LABS: Hyaline Casts,Urine 20 /LPF (0-3); Mucus,Urine Occasional /LPF (Occasional); RBC,Urine 1 /HPF (0-4); Squamous Epithelial Cell,Urine Occasional /HPF (0-10)
[2021-09-17 03:41] LABS: Bilirubin,Urine Negative (Negative); Blood, Urine Negative (Negative); Glucose,Urine (UA) Negative (Negative); Ketones,Urine Negative (Negative); Nitrite,Urine Negative (Negative); Protein,Urine Negative (Negative); Urine Appearance Clear (Clear); Urine Color Yellow (Yellow); Urine Urobilinogen 0.2 eU/dL (<2.0); Urine pH 5.5 (4.5-8.0)
[2021-09-17 03:42] LABS: ABG Base Excess 22.3 MMOL/L (-2.5-2.5); ABG HCO3 47.2 MMOL/L (20-26); ABG Oxygen Saturation 94.8 % (95-100); ABG PO2 73.2 MM HG (80-95); ABG TCO2 46.8 MMOL/L (23-27)
[2021-09-17 03:43] LABS: ABG PCO2 85.4 MM HG (35-48)
[2021-09-17] MEDS ORDERED: DILTIAZEM 100 MG VIAL.ADD IV ONE (04:27)
[2021-09-17] MEDS ORDERED: ALBUTEROL 2.5 MG/3 ML NEB RESP TX PRN (05:09)
[2021-09-17] MEDS ORDERED: MORPHINE 2 MG/1 ML SYRINGE IV PRN (05:10)
[2021-09-17] MEDS ORDERED: ONDANSETRON 4 MG/2 ML VIAL IV PRN (05:10)
[2021-09-17] MEDS ORDERED: GLUCAGON 1 MG VIAL IM PRN (05:24)
[2021-09-17] MEDS ORDERED: ENOXAPARIN 40 MG/0.4 ML SYRINGE SUBCUT SCH (05:30)
[2021-09-17] MEDS ORDERED: DEXTROSE 10% 250 ML BAG IV PRN (05:49)
[2021-09-17] MEDS: DILTIAZEM INJ 100 MG in SODIUM CHLORIDE 0.9% 100 ML IV SCH ×2 (06:26→10:00)
[2021-09-17] MEDS: LACTATED RINGERS 1,000 ML IV SCH ×3 (06:35→23:46)
[2021-09-17] MEDS: AZITHROMYCIN INJ 500 MG in SODIUM CHLORIDE 0.9% 250 ML IV SCH (06:41)
[2021-09-17] MEDS: methylPREDNISolone SOD SUC 40 MG/1 ML VIAL IV SCH ×3 (06:48→22:18)
[2021-09-17] MEDS: ALBUTEROL/IPRATROPIUM 3 ML NEB RESP TX SCH ×5 (07:36→23:44)
[2021-09-17] MEDS ORDERED: LORazepam 0.5 MG TABLET PO PRN (07:47)
[2021-09-17] MEDS ORDERED: SENNA 8.6 MG TABLET PO PRN (07:47)
[2021-09-17] MEDS ORDERED: LORazepam 1 MG TABLET PO PRN (08:00)
[2021-09-17] MEDS: cefTRIAXone 1,000 MG in SODIUM CHLORIDE 0.9% 100 ML IV SCH (08:22)
[2021-09-17 08:42] LABS: Calcium 9.7 MG/DL (8.5-10.1); Free T4 (Free Thyroxine) 1.03 NG/DL (0.76-1.46); Thyroid Stimulating Hormone 2.62 uIU/ml (0.358-3.74)
[2021-09-17] MEDS: INSULIN REGULAR 100 UNIT/ML SUBCUT SCH ×4 (08:47→20:40)
[2021-09-17 08:57] LABS: Osmolality,Calculated 285.8 MOS/KG (273-304)
[2021-09-17] MEDS: SILDENAFIL 20 MG TABLET PO SCH ×3 (08:58→21:21)
[2021-09-17] MEDS: ATORVASTATIN 40 MG TABLET PO SCH (08:59)
[2021-09-17] MEDS: MONTELUKAST 10 MG TABLET PO SCH (08:59)
[2021-09-17] MEDS: APIXABAN 5 MG TABLET PO SCH ×2 (08:59→21:21)
[2021-09-17] MEDS: MULTIVITAMIN (CENTRUM) TABLET PO SCH (08:59)
[2021-09-17] MEDS: SERTRALINE 100 MG TABLET PO SCH (08:59)
[2021-09-17] MEDS: CHOLECALCIFEROL 5,000 UNIT TABLET PO SCH (09:00)
[2021-09-17] MEDS: METOPROLOL TARTRATE 50 MG TABLET PO SCH ×2 (09:00→21:21)
[2021-09-17] MEDS: POTASSIUM CHLORIDE 20 MEQ TABLET PO PRN ×4 (09:15→16:30)
[2021-09-17] MEDS: ARIPiprazole 10 MG TABLET PO SCH (09:16)
[2021-09-17 12:10] LABS: Arterial Base Excess iSTAT 26 MMOL/L (-2.5-2.5); Arterial Bicarbonate iSTAT 55.3 MMOL/L (20-26); Arterial O2 Saturation iSTAT 94 % (95-100); Arterial PCO2 iSTAT 85 MM HG (35-48); Arterial PO2 iSTAT 77 MM HG (80-95); Arterial Total CO2 iSTAT > 50 MMO/L (23-27); Arterial pH iSTAT 7.421 (7.35-7.45)
[2021-09-17 13:10] LABS: Calcium 8.4 MG/DL (8.5-10.1); Osmolality,Calculated 286.7 MOS/KG (273-304); Potassium 3.6 MMOL/L (3.5-5.1)
[2021-09-17] MEDS ORDERED: THEOPHYLLINE ER (24 HR) 400 MG TABLET PO SCH (19:00)
[2021-09-18] MEDS: LACTATED RINGERS 1,000 ML IV SCH ×2 (00:43→08:02)
[2021-09-18] MEDS: AZITHROMYCIN INJ 500 MG in SODIUM CHLORIDE 0.9% 250 ML IV SCH (04:44)
[2021-09-18 04:50] LABS: Arterial Base Excess iSTAT 22 MMOL/L (-2.5-2.5); Arterial Bicarbonate iSTAT 50.3 MMOL/L (20-26); Arterial O2 Saturation iSTAT 89 % (95-100); Arterial PCO2 iSTAT 72 MM HG (35-48); Arterial PO2 iSTAT 58 MM HG (80-95); Arterial Total CO2 iSTAT > 50 MMO/L (23-27)
[2021-09-18] MEDS: DILTIAZEM INJ 100 MG in SODIUM CHLORIDE 0.9% 100 ML IV SCH (05:02)
[2021-09-18] MEDS: cefTRIAXone 1,000 MG in SODIUM CHLORIDE 0.9% 100 ML IV SCH (05:54)
[2021-09-18] MEDS: methylPREDNISolone SOD SUC 40 MG/1 ML VIAL IV SCH ×3 (05:55→17:59)
[2021-09-18 05:59] LABS: Immature Granulocytes % 0.5 %; Immature Granulocytes Absolute 0.04 #; Lymphocytes # 0.6 10*3/uL (1.4-4.0); Lymphocytes % 7.2 % (21.3-54.2); Mean Corpuscular HGB Conc 29.2 GM/DL (32-36); Mean Corpuscular Volume 98.6 FL (87-102); Mean Platelet Volume 10.6 FL (9.6-12.0); Monocytes # 0.2 10*3/uL (0.11-0.8); Monocytes % 2.9 % (1.7-12.7); Neutrophils % 89.4 % (38.7-73.9); Platelet Count 181 T/CUMM (130-400); Red Blood Count 3.47 MC/CUMM (3.8-5.5); Red Cell Distribution Width 15.6 % (9.3-17.3); White Blood Count 7.9 T/CUMM (4-12)
[2021-09-18 06:00] LABS: Hematocrit 34.2 VOL% (35.7-47.0)
[2021-09-18 06:01] LABS: Calcium 9.5 MG/DL (8.5-10.1); Osmolality,Calculated 289.4 MOS/KG (273-304); Potassium 3.4 MMOL/L (3.5-5.1)
[2021-09-18] MEDS: ALBUTEROL/IPRATROPIUM 3 ML NEB RESP TX SCH ×5 (07:15→23:50)
[2021-09-18] MEDS: INSULIN REGULAR 100 UNIT/ML SUBCUT SCH ×3 (08:24→17:43)
[2021-09-18] MEDS: SERTRALINE 100 MG TABLET PO SCH (08:25)
[2021-09-18] MEDS: ATORVASTATIN 40 MG TABLET PO SCH (08:25)
[2021-09-18] MEDS: METOPROLOL TARTRATE 50 MG TABLET PO SCH ×2 (08:25→22:03)
[2021-09-18] MEDS: SILDENAFIL 20 MG TABLET PO SCH ×3 (08:26→22:02)
[2021-09-18] MEDS: APIXABAN 5 MG TABLET PO SCH ×2 (08:26→22:03)
[2021-09-18] MEDS: ARIPiprazole 10 MG TABLET PO SCH (08:26)
[2021-09-18] MEDS: MULTIVITAMIN (CENTRUM) TABLET PO SCH (08:26)
[2021-09-18] MEDS: LIDOCAINE 5% PATCH TRANSDERM SCH (08:27)
[2021-09-18] MEDS: CHOLECALCIFEROL 5,000 UNIT TABLET PO SCH (08:27)
[2021-09-18] MEDS: MONTELUKAST 10 MG TABLET PO SCH (08:35)
[2021-09-18] MEDS: POTASSIUM CHLORIDE 20 MEQ TABLET PO PRN ×3 (08:43→15:43)
[2021-09-18] MEDS ORDERED: FUROSEMIDE 40 MG/4 ML VIAL IV ONE (09:42)
[2021-09-19] MEDS: methylPREDNISolone SOD SUC 40 MG/1 ML VIAL IV SCH ×4 (01:06→21:05)
[2021-09-19] MEDS: INSULIN REGULAR 100 UNIT/ML SUBCUT SCH ×5 (01:16→20:22)
[2021-09-19] MEDS: ALBUTEROL/IPRATROPIUM 3 ML NEB RESP TX SCH ×5 (03:50→19:46)
[2021-09-19] MEDS: cefTRIAXone 1,000 MG in SODIUM CHLORIDE 0.9% 100 ML IV SCH (05:30)
[2021-09-19 05:57] LABS: Calcium 9.7 MG/DL (8.5-10.1); Osmolality,Calculated 294.1 MOS/KG (273-304); Potassium 3.3 MMOL/L (3.5-5.1)
[2021-09-19] MEDS: POTASSIUM CHLORIDE 20 MEQ TABLET PO PRN ×2 (06:09→08:14)
[2021-09-19 06:29] LABS: Basophils % 0.2 % (0.0-0.8); Immature Granulocytes % 0.6 %; Immature Granulocytes Absolute 0.07 #; Lymphocytes # 0.5 10*3/uL (1.4-4.0); Lymphocytes % 4.3 % (21.3-54.2); Mean Corpuscular HGB Conc 29.4 GM/DL (32-36); Mean Corpuscular Volume 99.1 FL (87-102); Mean Platelet Volume 10.9 FL (9.6-12.0); Monocytes # 0.5 10*3/uL (0.11-0.8); Monocytes % 3.7 % (1.7-12.7); Neutrophils % 91.2 % (38.7-73.9); Platelet Count 196 T/CUMM (130-400); Red Cell Distribution Width 16.1 % (9.3-17.3); White Blood Count 12.4 T/CUMM (4-12)
[2021-09-19 06:32] LABS: Hematocrit 34.7 VOL% (35.7-47.0); Hemoglobin 10.2 GM/DL (12.0-16.0)
[2021-09-19] MEDS: AZITHROMYCIN INJ 500 MG in SODIUM CHLORIDE 0.9% 250 ML IV SCH (06:42)
[2021-09-19 07:25] LABS: Lymphocytes 5 % (20-55); Platelet Estimate Normal; Total Cells Counted 100
[2021-09-19] MEDS: SILDENAFIL 20 MG TABLET PO SCH ×3 (08:12→21:03)
[2021-09-19] MEDS: SERTRALINE 100 MG TABLET PO SCH (08:13)
[2021-09-19] MEDS: ATORVASTATIN 40 MG TABLET PO SCH (08:13)
[2021-09-19] MEDS: MONTELUKAST 10 MG TABLET PO SCH (08:13)
[2021-09-19] MEDS: ARIPiprazole 10 MG TABLET PO SCH (08:13)
[2021-09-19] MEDS: MULTIVITAMIN (CENTRUM) TABLET PO SCH (08:13)
[2021-09-19] MEDS: CHOLECALCIFEROL 5,000 UNIT TABLET PO SCH (08:13)
[2021-09-19] MEDS: APIXABAN 5 MG TABLET PO SCH ×2 (08:14→21:03)
[2021-09-19] MEDS: METOPROLOL TARTRATE 50 MG TABLET PO SCH ×2 (08:14→21:03)
[2021-09-19] MEDS: LIDOCAINE 5% PATCH TRANSDERM SCH (08:18)
[2021-09-19] MEDS ORDERED: POTASSIUM CHLORIDE 20 MEQ TABLET PO ONE (08:37)
[2021-09-19] MEDS: THEOPHYLLINE ER (24 HR) 200 MG CAPSULE PO SCH (12:16)
[2021-09-20] MEDS: ALBUTEROL/IPRATROPIUM 3 ML NEB RESP TX SCH ×5 (03:20→14:37)
[2021-09-20] MEDS: AZITHROMYCIN INJ 500 MG in SODIUM CHLORIDE 0.9% 250 ML IV SCH (04:38)
[2021-09-20] MEDS: methylPREDNISolone SOD SUC 40 MG/1 ML VIAL IV SCH ×2 (06:11→14:30)
[2021-09-20] MEDS: cefTRIAXone 1,000 MG in SODIUM CHLORIDE 0.9% 100 ML IV SCH (06:12)
[2021-09-20 06:37] LABS: Calcium 9.5 MG/DL (8.5-10.1)
[2021-09-20 06:40] LABS: Potassium 3.8 MMOL/L (3.5-5.1)
[2021-09-20 07:05] LABS: Basophils % 0.1 % (0.0-0.8); Hematocrit 36.4 VOL% (35.7-47.0); Hemoglobin 10.5 GM/DL (12.0-16.0); Immature Granulocytes % 0.6 %; Immature Granulocytes Absolute 0.08 #; Lymphocytes # 0.5 10*3/uL (1.4-4.0); Lymphocytes % 4.2 % (21.3-54.2); Mean Corpuscular HGB Conc 28.8 GM/DL (32-36); Mean Corpuscular Volume 101.1 FL (87-102); Mean Platelet Volume 11.3 FL (9.6-12.0); Monocytes # 0.8 10*3/uL (0.11-0.8); Monocytes % 6.6 % (1.7-12.7); Neutrophils % 88.5 % (38.7-73.9); Platelet Count 218 T/CUMM (130-400); Red Cell Distribution Width 16.5 % (9.3-17.3); White Blood Count 12.5 T/CUMM (4-12)
[2021-09-20] MEDS: INSULIN REGULAR 100 UNIT/ML SUBCUT SCH ×2 (08:00→11:15)
[2021-09-20] MEDS: LIDOCAINE 5% PATCH TRANSDERM SCH (08:30)
[2021-09-20] MEDS: METOPROLOL TARTRATE 50 MG TABLET PO SCH (08:34)
[2021-09-20] MEDS: ATORVASTATIN 40 MG TABLET PO SCH (08:34)
[2021-09-20] MEDS: CHOLECALCIFEROL 5,000 UNIT TABLET PO SCH (08:34)
[2021-09-20] MEDS: THEOPHYLLINE ER (24 HR) 200 MG CAPSULE PO SCH (08:34)
[2021-09-20] MEDS: MULTIVITAMIN (CENTRUM) TABLET PO SCH (08:35)
[2021-09-20] MEDS: APIXABAN 5 MG TABLET PO SCH (08:35)
[2021-09-20] MEDS: SERTRALINE 100 MG TABLET PO SCH (08:35)
[2021-09-20] MEDS: MONTELUKAST 10 MG TABLET PO SCH (08:35)
[2021-09-20] MEDS: SILDENAFIL 20 MG TABLET PO SCH (08:35)
[2021-09-20] MEDS: ARIPiprazole 10 MG TABLET PO SCH (08:35)
[2021-09-20] MEDS ORDERED: BISACODYL 10 MG SUPP RECTAL ONE (09:50)
[2021-09-20 11:08] LABS: Anisocytosis 2+; Atypical Lymphocytes Few; Lymphocytes 6 % (20-55); Macrocytosis 1+; Microcytosis 1+; Platelet Estimate Normal; Total Cells Counted 100
[2021-09-20 11:41] VITALS: BP 137/56
== END 2021-09-20 15:30 | disposition hospice, home (50) | DRG 189 ==
LOC: EDUNIT# → EDBD → N.ED 00:20 → SUATTDRO 05:09 → N.EDINP 05:09 → N.CC 05:49 → N.3E 09-18 17:35
PROVIDERS: ADMIT Family Medicine; ATTEND Internal Medicine